=== PATIENT | male | born 1965 | race Caucasian/White ===

== ENCOUNTER 2017-01-21 15:05 | Outpatient (CLI) | payer OTHER ==
--- NOTE | 2017-01-21 15:42 | XRay Report ---
PARANASAL SINUSES: History: Left cheek pain, left facial pain, migraine. Multiple views of the paranasal sinuses demonstrate normal formation with no abnormal mucoperiosteal thickening or fluid levels. The bony del angel are intact. IMPRESSION: Normal study. The left maxillary sinus is unremarkable.
== END 2017-01-21 15:06 | disposition home or self-care (01) ==
LOC: XRAY 15:05
PROVIDERS: ATTEND Chiropractor
DX: G43.909 Migraine, unspecified, not intractable, without status migrainosus (principal)
CPT/HCPCS: 70220